=== PATIENT | female | born 1930 | race Caucasian/White ===

== ENCOUNTER 2018-01-18 19:29 | Inpatient (IN) | payer MEDICARE, OTHER ==
[2018-01-18] MEDS ORDERED: Enoxaparin Sodium 60 MG/0.6 ML SYRINGE ONE (20:25)
[2018-01-18 20:34] LABS: Troponin I 1.315 ng/mL (< 0.028)
[2018-01-18] MEDS ORDERED: Ondansetron HCl/PF 4 MG/2 ML Vial IVP PRN (22:31)
[2018-01-18] MEDS ORDERED: Ondansetron ODT 4 MG TAB SL PRN (22:31)
[2018-01-18] MEDS ORDERED: Acetaminophen 325 MG TAB PO PRN (22:31)
[2018-01-19] MEDS ORDERED: Nitroglycerin 0.4 MG TAB (25 Tab Bottle) SL PRN (00:04)
[2018-01-19] MEDS ORDERED: diphenhydrAMINE 25 MG CAP PO PRN (00:09)
--- NOTE | 2018-01-19 01:56 | HP ---
PRIMARY CARE PHYSICIAN: Roque Mata MD CHIEF COMPLAINT: Chest pain. HISTORY OF PRESENT ILLNESS: This is an 87-year-old female with a history of atrial fibrillation, gas troesophageal reflux disease, and hyperlipidemia, who presents with a chief complaint of chest pain w ith nausea that has been intermittently occurring over the last 2 days. When those are not occurring , she also has some shortness of breath, particularly with exertion and just generally feels weak wit h some heaviness in her chest. At the time of my evaluation, the patient currently denies any active shortness of breath, chest pain , heaviness, or weakness. She endorses feeling very anxious at this point in time and states that sh michele is confused about why she is here. The patient feels very "confused" particularly because her typi madelaine schedule has been interrupted. REVIEW OF SYSTEMS: As per HPI, otherwise negative. Constitutional: No recent fevers, chills, signi ficant weight loss or gain. HEENT: No new headaches, fevers, lightheadedness, or episodes of passin g out. Cardiovascular: As per above. Respiratory: As per above. Denies any recent issues with co ngestion, upper respiratory infection, postnasal drip. Gastrointestinal: As above. Decreased appet ite over the last 3-4 days. Denies any diarrhea, constipation, or abdominal pain. Genitourinary: D enies any dysuria or change in urinary frequency quality or quantity. Musculoskeletal: As per above , but otherwise no myalgias or arthralgias. PAST MEDICAL HISTORY: As noted above. PAST SURGICAL HISTORY: Status post appendectomy, status post hysterectomy. MEDICATION RECONCILIATION: Please see the EMR for full details. SOCIAL HISTORY: The patient is having difficulty recalling this off the top of her head. PHYSICAL EXAMINATION: GENERAL: The patient is awake, alert, conversant, sitting on the edge of the hospital bed, oriented to self and date, knows that she is in the hospital, but recalled the wrong hospital. HEENT: Normocephalic, atraumatic. Pupils are equal, ocular motions intact. Moist mucous membranes. CARDIOVASCULAR: S1, S2. No murmurs, rubs, or gallops. Pulses 2+ bilateral upper extremities. No p itting pedal edema. RESPIRATORY: Reasonable air movement. No wheezes, rales, or rhonchi. Clear to auscultation. No co nversational dyspnea. GASTROINTESTINAL: Positive bowel sounds. Soft, nontender to palpation. MUSCULOSKELETAL: Moving all 4 extremities independently. LABORATORY DATA AND IMAGING: All that is available, troponin of 1.315 with a follow up troponin of 1 .540. ASSESSMENT AND PLAN: An 87-year-old female presenting with chest pain. Chest pain positive for an n xp-KH-wztkohtoi myocardial infarction. I am not able to find any other lab work available for the guru price. She will need serial troponins, CBC, CMP. She has been empirically placed on Lovenox, full d ose anticoagulation and received 50 mg subcu at 9:00 p.m. the night before. We will continue with an ticoagulation, telemetry, monitoring with Cardiology consultation as well. Aspirin, atorvastatin. D epending on the patient's vital signs, we will see if she can tolerate beta blockade or SHASHA inhibitor . Maintain the patient n.p.o. status for the time being, close monitoring of her hemodynamics, and c ardiac status as noted above. Admit the patient to inpatient telemetry.
[2018-01-19 05:51] LABS: #Basophils 0.1 thou/uL (0.0-0.2); #Eosinphils 0.4 thou/uL (0.0-0.7); #Lymphocytes 2.1 thou/uL (1.20-3.40); #Monocytes 0.7 thou/uL (0.11-0.59); #Neutrophils 5.6 thou/uL (1.40-6.50); %Eosinophils 4.2 % (0.0-10.0); %Lymphocytes 24.1 % (21.0-51.0); %Monocytes 7.5 % (0.0-10.0); %Neutrophils 63.1 % (42.0-75.0); Hemoglobin 11.2 g/dL (12.0-16.0); Mean Corpuscular HGB CONC 33.3 g/dL (32.0-36.0); Mean Corpuscular Hemoglobin 31.2 pg (27.0-31.0); Mean Corpuscular Volume 93.8 fl (81.0-99.0); Mean Platelet Volume 7.6 fL (7.4-10.4); Platelet Count 222 thou/uL (130-400); RBC Distribution Width 12.9 % (11.5-14.5); Red Blood Cell (RBC) Count 3.59 mill/uL (4.20-5.40); White Blood Cell (WBC) Count 8.9 thou/uL (4.8-10.8)
[2018-01-19 06:08] LABS: Anion Gap 8 mmol/L (10-20); BUN (Urea Nitrogen) 19 mg/dL (9.8-20.1); Calc. Creatinine Clearance 37 mL/min (70-130); Calcium 8.4 mg/dL (7.8-10.44); Carbon Dioxide 26 mmol/L (23-31); Cardiac Risk 2.7 (Less than 4.5); Chloride 108 mmol/L (98-107); Cholesterol 166 mg/dl (< 200 Desired); Estimated GFR-MDRD 76; Glucose 75 mg/dL (83-110); HDL Cholesterol 62 mg/dL (>60 Neg Risk); LDL Cholesterol, Calculated 91 mg/dL; Potassium 3.6 mmol/L (3.5-5.1); Sodium 138 mmol/L (136-145); Triglycerides 65 mg/dL (Less than 150)
[2018-01-19] MEDS: Docusate 100 MG CAP PO SCH ×2 (08:02→20:58)
[2018-01-19] MEDS: Aspirin 325 MG TAB PO SCH (08:03)
[2018-01-19] MEDS ORDERED: Enoxaparin Sodium 40 MG/0.4 ML SYRINGE SC SCH (09:00)
--- NOTE | 2018-01-19 11:26 | PDOC.PN ---
- Subjective Encounter Start Date: 01/19/18 Encounter Start Time: 09:45 Subjective: no chest pain or palp or sob -: is watching tv - Objective Resuscitation Status: Resuscitation Status FULL:Full Resuscitation MAR Reviewed: Yes Vital Signs & Weight: Vital Signs (12 hours) Temp Pulse Resp BP BP Pulse Ox 01/19/18 10:46 98.0 F 77 16 184/77 H 93 L 01/19/18 07:57 98.2 F 78 16 143/68 H 98 01/19/18 04:00 98.3 F 80 18 139/63 95 01/19/18 00:00 98.7 F 85 18 118/67 95 Weight Admit Weight 96 lb 5 oz Weight 96 lb 5 oz Result Diagrams: 01/19/18 05:26 01/19/18 05:26 Phys Exam - Physical Examination HEENT: PERRLA, moist MMs Neck: no JVD, supple Respiratory: no wheezing, no rales Cardiovascular: RRR, no significant murmur Gastrointestinal: soft, non-tender, no distention, positive bowel sounds Musculoskeletal: no edema, pulses present Neurological: non-focal, moves all 4 limbs Dx/Plan (1) NSTEMI (non-ST elevated myocardial infarction) Code(s): I21.4 - NON-ST ELEVATION (NSTEMI) MYOCARDIAL INFARCTION Status: Acute (2) Afib Code(s): I48.91 - UNSPECIFIED ATRIAL FIBRILLATION Status: Acute Qualifiers: Atrial fibrillation type: paroxysmal Qualified Code(s): I48.0 - Paroxysmal atrial fibrillation (3) Dyslipidemia Code(s): E78.5 - HYPERLIPIDEMIA, UNSPECIFIED Status: Chronic (4) GERD (gastroesophageal reflux disease) Code(s): K21.9 - GASTRO-ESOPHAGEAL REFLUX DISEASE WITHOUT ESOPHAGITIS Status: Chronic Qualifiers: Esophagitis presence: without esophagitis Qualified Code(s): K21.9 - Gastro -esophageal reflux disease without esophagitis (5) Dementia Code(s): F03.90 - UNSPECIFIED DEMENTIA WITHOUT BEHAVIORAL DISTURBANCE Status: Suspected Qualifiers: Dementia type: unspecified type Dementia behavioral disturbance: without behavioral disturbance Qualified Code(s): F03.90 - Unspecified dementia without behavioral disturbance - Plan is on lovenox 40mg sc q12h, asp and lipitor -: is npo for possible intervention -: not sure if she is fully oriented -: has denied prior cardiac w/u and colonoscopies -: hemostable now * . Review of Systems - Medications/Allergies Allergies/Adverse Reactions: Allergies Allergy/AdvReac Type Severity Reaction Status Date / Time penicillin G Allergy Verified 01/18/18 22:37 Medications: Current Medications Aspirin (Aspirin) 325 mg PO DAILY [facility] Last Admin: 01/19/18 08:03 Dose: 325 mg Atorvastatin Calcium (Lipitor) 20 mg PO QPM [facility] Bisacodyl (Dulcolax) 10 mg PO DAILYPRN PRN PRN Reason: Constipation Diphenhydramine HCl (Benadryl) 12.5 mg PO HSPRN PRN PRN Reason: Insomnia Docusate Sodium (Colace) 100 mg PO BID [facility] Last Admin: 01/19/18 08:02 Dose: 100 mg Enoxaparin Sodium (Lovenox) 40 mg SC 0900,2100 [facility] Last Admin: 01/19/18 08:03 Dose: 40 mg Nitroglycerin (Nitrostat) 0.4 mg SL Q5MIN PRN PRN Reason: Chest Pain
[2018-01-19] MEDS ORDERED: Losartan 25 MG TAB PO SCH (11:45)
[2018-01-19] MEDS ORDERED: Communication Order-Pharmacy FS SCH (11:45)
--- NOTE | 2018-01-19 12:34 | CON ---
DATE OF CONSULTATION: 01/19/2018 REASON FOR CONSULTATION: Chest pressure, wide complex tachycardia. HISTORY OF PRESENT ILLNESS: Ms. Tiki Zelaya is a delightful 87-year-old woman from [place]. She was sent here after she presented with chest pressure at rest and a wide complex tachycardia. The p atient is feeling better now, but when she arrived in the emergency room, she felt that pressure as m entioned. The patient received aspirin and Lovenox in the emergency room. The patient states that she has had some heart difficulties in the past, but she is not sure what. S he said she has not seen a stator plate washer as she knows but she said, "my memory is not as good as it us ed to be." She has history of esophageal reflux, ?atrial fibrillation. She feels well now. She has eaten breakfast and feeling well. REVIEW OF SYSTEMS: Constitutional: No significant weight gain or loss. Vision: No changes. Heari ng: No changes. Pulmonary: No cough or wheezing. Gastrointestinal: No nausea, vomiting, or diarr hea. Skin: No rashes. Neurologic: No unilateral weakness or numbness. Psychiatric: She says her memory is poor, but no unusual depression or anxiety. SOCIAL HISTORY: She has a sister who lives in [place]. She has children who live out of [facility]. PAST SURGICAL HISTORY: 1. Previous appendectomy. 2. Previous hysterectomy. HOME MEDICATIONS: The patient reports that she is not certain about her medications. PHYSICAL EXAMINATION: GENERAL: This is a pleasant elderly woman, in no distress. VITAL SIGNS: Blood pressure 184/77, pulse 77 and regular. EYES: Sclerae nonicteric. MOUTH: Mucous membranes moist. NECK: Supple. LUNGS: Clear anteriorly and laterally. CARDIAC: There is a 3/6 holosystolic murmur at the apex of mitral regurgitation. A 2-3/6 midsystoli c murmur at left midsternal border. No diastolic murmur, no S3. ABDOMEN: Soft, nontender, no hepatosplenomegaly. EXTREMITIES: Warm and dry. No clubbing, cyanosis or edema. Good femoral pulse on the right. Good dorsalis pedis and posterior tibial pulses bilaterally. SKIN: Warm and dry. PERTINENT LABORATORY AND X-RAY FINDINGS: Hemoglobin 11.2, hematocrit 33.7. Troponin level 1.5. LDL cholesterol is 91. Echocardiogram revealed a normal ejection fraction, but she has moderate to severe mitral regurgitati on, moderate tricuspid insufficiency, mildly elevated pulmonary artery pressure. EKG initially revealed a wide complex tachycardia that probably was ventricular tachycardia. The QRS duration is 0.12. There is a left axis deviation with a right bundle branch block pattern. Follow up EKGs are sinus rhythm with the mild left atrial enlargement on the EKG. ASSESSMENT: 1. Non-ST elevation myocardial infarction. 2. Wide complex tachycardia, probably ventricular tachycardia, potentially could be supraventricular tachycardia with aberrancy, but statistically at this age more likely will be ventricular in origin. 3. Moderate to severe mitral regurgitation with calcified mitral valve. 4. Hypertension. PLAN: 1. Continue enoxaparin, we will reduce dose. 2. Add SHASHA inhibitor or angiotensin receptor jimi. 3. Aspirin. 4. Recommend cardiac catheterization for the definitive test to see the extent of coronary artery di sease. Discussed risks of stroke, heart attack, iodine allergy, loss of blood supply to the leg or k idney, stent thrombosis, stent restenosis. She understands and wished to proceed.
[2018-01-19] MEDS: Atorvastatin Calcium 20 MG TAB PO SCH (20:57)
[2018-01-19] MEDS: Bisacodyl 5 MG TAB PO PRN (20:57)
[2018-01-19] MEDS: Enoxaparin Sodium 30 MG/0.3 ML SYRINGE SC SCH (20:58)
[2018-01-20 05:59] LABS: #Basophils 0.1 thou/uL (0.0-0.2); #Eosinphils 0.5 thou/uL (0.0-0.7); #Lymphocytes 1.7 thou/uL (1.20-3.40); #Monocytes 0.6 thou/uL (0.11-0.59); #Neutrophils 3.9 thou/uL (1.40-6.50); %Basophils 1.4 % (0.0-1.0); %Lymphocytes 25.2 % (21.0-51.0); %Monocytes 9.1 % (0.0-10.0); %Neutrophils 57.3 % (42.0-75.0); Hemoglobin 11.3 g/dL (12.0-16.0); Mean Corpuscular HGB CONC 33.3 g/dL (32.0-36.0); Mean Corpuscular Hemoglobin 31.3 pg (27.0-31.0); Mean Corpuscular Volume 94.1 fl (81.0-99.0); Mean Platelet Volume 7.7 fL (7.4-10.4); Platelet Count 233 thou/uL (130-400); RBC Distribution Width 12.6 % (11.5-14.5); White Blood Cell (WBC) Count 6.8 thou/uL (4.8-10.8)
[2018-01-20 06:06] LABS: Anion Gap 8 mmol/L (10-20); BUN (Urea Nitrogen) 14 mg/dL (9.8-20.1); Calc. Creatinine Clearance 39 mL/min (70-130); Calcium 8.4 mg/dL (7.8-10.44); Carbon Dioxide 29 mmol/L (23-31); Chloride 108 mmol/L (98-107); Estimated GFR-MDRD 82; Glucose 85 mg/dL (83-110); Potassium 3.3 mmol/L (3.5-5.1); Sodium 142 mmol/L (136-145)
[2018-01-20] MEDS: Enoxaparin Sodium 30 MG/0.3 ML SYRINGE SC SCH (08:15)
[2018-01-20] MEDS: Docusate 100 MG CAP PO SCH ×2 (08:15→20:20)
[2018-01-20] MEDS: Aspirin 325 MG TAB PO SCH (08:15)
[2018-01-20] MEDS: Losartan 25 MG TAB PO SCH (08:15)
[2018-01-20] MEDS ORDERED: Acetaminophen 325 MG TAB PO PRN (09:08)
--- NOTE | 2018-01-20 12:28 | PDOC.CTH ---
Cardiology Progress Note - Subjective Awake, alert, technical project manager at bedside for scan. Patient denies chest pain, shortness of breath, nausea/vomiting. Denies palpitations or accelerated heart rate. Discussed cardiac catheterization, questions asked and answered. No overnight events, no cardiac events. - Objective Vital Signs Temp Pulse Resp BP BP Pulse Ox 01/20/18 10:44 98.1 F 76 15 135/69 95 01/20/18 08:12 98.0 F 76 15 161/72 H 96 01/20/18 05:41 98 01/20/18 04:00 98.2 F 71 18 117/57 L Admit Weight 96 lb 5 oz Weight 95 lb 11.2 oz 01/19/18 01/20/18 01/21/18 06:59 06:59 06:59 Intake Total 480 Balance 480 - Physical Examination General/Neuro: alert & oriented x3, NAD Neck: no JVD present Lungs: CTA, unlabored respirations Heart: RRR, other: (3/6 systolic murmur heard best @ the apex, 2/6 systolic murmur heard best @ L MS border) Abdomen: NT/ND - Telemetry Telemetry Rhythm: SR/SA - Labs Result Diagrams: 01/20/18 05:19 01/20/18 05:19 Troponin/CKMB Troponin I 1.540 ng/mL (< 0.028) H* 01/18/18 22:06 - Assessment/Plan 1.S/P NSTEMI-likely demand ischemia 2/2 prolonged tachycardia, no known CAD. Chest pain free currently, max trop 1.540. Cont ASA, statin, ARB. Plan for [facility] tomorrow morning. 2.Wide Complex Tachycardia-likely Vtach. No recurrence. 3.Mitral Regurg-mod to severe c/ calcified valve on most recent echo 4.Hypokalemia-K+ 3.3, recheck lab in am, on ARB
--- NOTE | 2018-01-20 13:42 | PDOC.PN ---
- Subjective Encounter Start Date: 01/20/18 Encounter Start Time: 11:00 Subjective: no sob or chest pain -: is eating her breakfast now -: no palpitations, is worried about too much happening from last 2 days - Objective Resuscitation Status: Resuscitation Status FULL:Full Resuscitation Vital Signs & Weight: Vital Signs (12 hours) Temp Pulse Pulse Pulse Resp BP BP 01/20/18 12:50 76 76 173/82 H 127/70 01/20/18 10:44 98.1 F 76 15 01/20/18 08:12 98.0 F 76 15 01/20/18 05:41 01/20/18 04:00 98.2 F 71 18 BP BP Pulse Ox Pulse Ox Pulse Ox 01/20/18 12:50 98 97 01/20/18 10:44 135/69 95 01/20/18 08:12 161/72 H 96 01/20/18 05:41 98 01/20/18 04:00 117/57 L Weight Admit Weight 96 lb 5 oz Weight 95 lb 11.2 oz I&O: 01/19/18 01/20/18 01/21/18 06:59 06:59 06:59 Intake Total 480 Balance 480 Result Diagrams: 01/20/18 05:19 01/20/18 05:19 Phys Exam - Physical Examination HEENT: PERRLA, moist MMs, sclera anicteric Neck: no JVD, supple Respiratory: no wheezing, no rales Cardiovascular: RRR, no significant murmur Gastrointestinal: soft, non-tender, positive bowel sounds Musculoskeletal: no edema, pulses present Neurological: non-focal, moves all 4 limbs Dx/Plan (1) NSTEMI (non-ST elevated myocardial infarction) Code(s): I21.4 - NON-ST ELEVATION (NSTEMI) MYOCARDIAL INFARCTION Status: Acute (2) Afib Code(s): I48.91 - UNSPECIFIED ATRIAL FIBRILLATION Status: Chronic Qualifiers: Atrial fibrillation type: paroxysmal Qualified Code(s): I48.0 - Paroxysmal atrial fibrillation (3) Dyslipidemia Code(s): E78.5 - HYPERLIPIDEMIA, UNSPECIFIED Status: Chronic (4) GERD (gastroesophageal reflux disease) Code(s): K21.9 - GASTRO-ESOPHAGEAL REFLUX DISEASE WITHOUT ESOPHAGITIS Status: Chronic Qualifiers: Esophagitis presence: without esophagitis Qualified Code(s): K21.9 - Gastro -esophageal reflux disease without esophagitis (5) Dementia Code(s): F03.90 - UNSPECIFIED DEMENTIA WITHOUT BEHAVIORAL DISTURBANCE Status: Suspected Qualifiers: Dementia type: unspecified type Dementia behavioral disturbance: without behavioral disturbance Qualified Code(s): F03.90 - Unspecified dementia without behavioral disturbance - Plan is on lovenox 30mg q12h, asp, lipitor, cozaar. -: echo shows ivc dil, pasp 41mmhg, will get usg venous doppler -: cath in am, watch for overload with iv fluids-may dc if tolerating oraldiet -: to amb as tolerated * . Review of Systems - Medications/Allergies Allergies/Adverse Reactions: Allergies Allergy/AdvReac Type Severity Reaction Status Date / Time penicillin G Allergy Verified 01/18/18 22:37 Medications: Current Medications Acetaminophen (Tylenol) 650 mg PO Q6H PRN PRN Reason: Headache/Fever or Pain Last Admin: 01/20/18 09:13 Dose: 650 mg Aspirin (Aspirin) 325 mg PO DAILY [facility] Last Admin: 01/20/18 08:15 Dose: 325 mg Atorvastatin Calcium (Lipitor) 20 mg PO QPM [facility] Last Admin: 01/19/18 20:57 Dose: 20 mg Bisacodyl (Dulcolax) 10 mg PO DAILYPRN PRN PRN Reason: Constipation Last Admin: 01/19/18 20:57 Dose: 10 mg Diphenhydramine HCl (Benadryl) 12.5 mg PO HSPRN PRN PRN Reason: Insomnia Docusate Sodium (Colace) 100 mg PO BID [facility] Last Admin: 01/20/18 08:15 Dose: 100 mg Enoxaparin Sodium (Lovenox) 30 mg SC 0900,2100 [facility] Stop: 01/20/18 21:01 Last Admin: 01/20/18 08:15 Dose: 30 mg Sodium Chloride (Normal Saline 0.9%) 1,000 mls @ 80 mls/hr IV .[id number] [facility] Losartan Potassium (Cozaar) 50 mg PO DAILY [facility] Last Admin: 01/20/18 08:15 Dose: 50 mg Miscellaneous Information (Communication Order-Pharmacy) 0 each FS ONE [facility] Stop: 01/21/18 11:46 Nitroglycerin (Nitrostat) 0.4 mg SL Q5MIN PRN PRN Reason: Chest Pain
--- NOTE | 2018-01-20 15:36 | PRG ---
DATE OF SERVICE: 01/20/2018 Ms. Zelaya is doing well, no complaints today. Please see the note dictated by Rema Gilbert in the computer. Blood pressure 135/69. ASSESSMENT: 1. Non-ST elevation myocardial infarction. 2. Wide complex tachycardia, looks like ventricular tachycardia. 3. Mitral regurgitation. PLAN: Initial plan was to consider cardiac catheterization; however, the patient does have significa nt dementia and is frail. I had a long discussion with the son and he has concerns about his mother withstanding procedures. He has not declined, but states that he does have some concerns. After a l sunday discussion, we decided to do the followin. Do stress test tomorrow. 2. If the stress test is normal, treat her medically. 3. If the stress test is abnormal, he would like to discuss further about maybe doing a cardiac cath eterization. Dr. Enriquez will return tomorrow to discuss if there are abnormalities on the stress test. The son's phone number [phone].
--- NOTE | 2018-01-20 15:58 | ULT ---
BILATERAL LOWER EXTREMITY VENOUS ULTRASOUND WITH DOPPLER: Date: 01/20/18 HISTORY: not provided TECHNIQUE: Roberson scale, color flow, Doppler imaging, and spectral waveform analysis performed of the left and rig ht lower extremity deep venous system. FINDINGS: Bilaterally, there is compressibility, presence of flow, and augmentation in the common femoral, femo ral vein, and popliteal vein. There is flow in bilateral greater saphenous veins, profunda veins, and posterior tibial veins. IMPRESSION: No evidence of thrombus in the left or right lower extremity deep venous system. POS: GISELLE
[2018-01-20] MEDS: Atorvastatin Calcium 20 MG TAB PO SCH (20:20)
[2018-01-20] MEDS: Bisacodyl 5 MG TAB PO PRN (20:20)
[2018-01-21 05:33] LABS: #Basophils 0.1 thou/uL (0.0-0.2); #Eosinphils 0.6 thou/uL (0.0-0.7); #Lymphocytes 2.1 thou/uL (1.20-3.40); #Monocytes 0.6 thou/uL (0.11-0.59); #Neutrophils 4.1 thou/uL (1.40-6.50); %Basophils 1.5 % (0.0-1.0); %Eosinophils 7.4 % (0.0-10.0); %Lymphocytes 28.3 % (21.0-51.0); %Monocytes 8.2 % (0.0-10.0); %Neutrophils 54.5 % (42.0-75.0); Hemoglobin 12.8 g/dL (12.0-16.0); Mean Corpuscular HGB CONC 33.2 g/dL (32.0-36.0); Mean Corpuscular Hemoglobin 30.8 pg (27.0-31.0); Mean Corpuscular Volume 92.9 fl (81.0-99.0); Mean Platelet Volume 7.4 fL (7.4-10.4); Platelet Count 271 thou/uL (130-400); RBC Distribution Width 12.7 % (11.5-14.5); Red Blood Cell (RBC) Count 4.15 mill/uL (4.20-5.40); White Blood Cell (WBC) Count 7.5 thou/uL (4.8-10.8)
[2018-01-21 05:45] LABS: Anion Gap 12 mmol/L (10-20); BUN (Urea Nitrogen) 14 mg/dL (9.8-20.1); Calc. Creatinine Clearance 33 mL/min (70-130); Calcium 9.2 mg/dL (7.8-10.44); Carbon Dioxide 25 mmol/L (23-31); Chloride 106 mmol/L (98-107); Estimated GFR-MDRD 67; Glucose 85 mg/dL (83-110); Potassium 3.3 mmol/L (3.5-5.1); Sodium 140 mmol/L (136-145)
[2018-01-21] MEDS: Sodium Chloride 0.9% 1,000 ML IV SCH ×2 (05:57→20:53)
--- NOTE | 2018-01-21 07:36 | PDOC.CTH ---
Cardiology Progress Note - Subjective No complaints today. She would like to go home. - Objective Vital Signs Temp Pulse Resp BP BP Pulse Ox 01/21/18 04:00 98.4 F 86 18 157/66 H 98 01/20/18 20:20 97.6 F 99 18 96 01/20/18 19:50 97.6 F 99 18 141/87 H 96 Admit Weight 96 lb 5 oz Weight 94 lb 14.4 oz 01/20/18 01/21/18 01/22/18 06:59 06:59 06:59 Intake Total 480 240 Balance 480 240 - Physical Examination General/Neuro: NAD Neck: carotid US brisk, no JVD present Lungs: CTA, unlabored respirations Heart: PMI normal, RRR Abdomen: no HSM, NT/ND Extremities: + femoral B - Labs Result Diagrams: 01/21/18 05:05 01/21/18 05:05 Troponin/CKMB Troponin I 1.540 ng/mL (< 0.028) H* 01/18/18 22:06 - Assessment/Plan 1. WCT 2. Increase troponin 3. Dementia 4. Increase frailty Plan on ST today givne co-morbidities If stress test low risk, recommend medical therapy. If felt to be high risk, discuss options with pt and family. Addendum: Pt with recent stress test WNL and normal EF. Spoke with Amado, pts son. He is relieved on the findings of the stress test and pleased on pursuing medical therapy. He understands the risk of SCD given WCT but is felt to be at low risk given no ischemia and normal EF. Continue with BB.
[2018-01-21] MEDS ORDERED: ADENOSINE 60 MG/20 ML VIAL ONE (11:07)
[2018-01-21] MEDS: Losartan 25 MG TAB PO SCH (11:40)
[2018-01-21] MEDS: Docusate 100 MG CAP PO SCH ×2 (11:40→20:53)
--- NOTE | 2018-01-21 13:07 | NM ---
RADIONUCLIDE STRESS REST MYOCARDIAL PERFUSION SCAN WITH CT ATTENUATION CORRECTION AND SPECT IMAGING LEFT VENTRICULAR WALL MOTION EVALUATION AND EJECTION FRACTION: History Chest pain. FINDINGS: Adenosine protocol was used. There is homogeneous uptake of radiotracer throughout the left ventricu lar myocardium on the stress and rest images. No focal perfusion defect or reversibility. QGS chas sis of gated SPECT images shows no focal wall motion abnormalities. Left ventricular ejection fracti on calculated at 81%. IMPRESSION: Normal myocardial perfusion scan. Normal left ventricular ejection fraction. POS: TPC
[2018-01-21 13:35] VITALS: BMI 18.5
--- NOTE | 2018-01-21 13:48 | PQF ---
JAYDEN DURANT, VIRAJ TEMPLE MD [id number] [id number] CLINICAL DOCUMENTATION IMPROVEMENT CLARIFICATION FORM: ICD-10 Updated PLEASE DO AN ADDENDUM TO THE PROGRESS NOTE WITH ANY DOCUMENTATION UPDATES OR ADDITIONS AND CARRY THROUGH TO DC SUMMARY. THANK YOU. DATE: 01-21-18 ATTN: DR. BERMUDEZ Please exercise your independent, professional judgment in responding to the clarification form. Clinical indicators are provided on the bottom of this form for your review Please check appropriate box(s): AMI TYPE: [ ] NSTEMI [ ] AMI Type II [ ] Other diagnosis [ ] Unable to determine CLINICAL INDICATORS - SIGNS / SYMPTOMS / LABS LABS: TROPONIN I 01-18 @ 1953 1.315 5 @ 2205 1.540 H&P: NSTEMI CARDIO CONSULT: NSTEMI ; WIDE COMPLEX TACHYCARDIA 01-20 CARDIO PN: NSTEMI - LIKELY DEMAND ISCHEMIA 2/ PROLONGED TACHYCARDIA, NO KNOWN CAD. CHEST PAIN FREE 01-20 LARA PN: NSTEMI RISKS: H&P: CP / NAUSEA INTERMITTENTLY OVER LAST 2 DAYS 01-19 CARDIO CONSULT: WIDE COMPLEX TACHYCARDIA; HTN; 01-20 CARDIO PN: NSTEMI - LIKELY DEMAND ISCHEMIA 2/ PROLONGED TACHYCARDIA TREATMENTS: TELEMETRY MONITORING CARDIO CONSULT - PLAN FOR CARDIAC CATH MAR: ASPIRIN COZAAR LOVENOX THANK YOU, KIRA (This form is maintained as a part of the permanent medical record) 2014 [employer]. All Rights Reserved Kira Nicholson RN, BS [email or web address] [facility]
--- NOTE | 2018-01-21 15:57 | PDOC.PN ---
- Subjective Encounter Start Date: 01/21/18 Encounter Start Time: 11:00 Subjective: is down in stress test lab -: no chest pain or sob -: has sitter in room as she tried to walk out and was confused overnight - Objective Resuscitation Status: Resuscitation Status FULL:Full Resuscitation MAR Reviewed: Yes Vital Signs & Weight: Vital Signs (12 hours) Temp Pulse Resp BP BP Pulse Ox 01/21/18 15:21 98.1 F 93 16 140/73 95 01/21/18 11:37 98.0 F 89 15 138/65 95 01/21/18 08:35 98.4 F 82 14 147/72 H 96 01/21/18 04:00 98.4 F 86 18 157/66 H 98 Weight Admit Weight 96 lb 5 oz Weight 94 lb 14.4 oz I&O: 01/20/18 01/21/18 01/22/18 06:59 06:59 06:59 Intake Total 480 240 Balance 480 240 Result Diagrams: 01/21/18 05:05 01/21/18 05:05 Phys Exam - Physical Examination HEENT: PERRLA, moist MMs Neck: no JVD, supple Respiratory: no wheezing, no rales Cardiovascular: RRR, no significant murmur Gastrointestinal: soft, non-tender, positive bowel sounds Musculoskeletal: no edema, pulses present Neurological: non-focal, moves all 4 limbs Dx/Plan (1) NSTEMI (non-ST elevated myocardial infarction) Code(s): I21.4 - NON-ST ELEVATION (NSTEMI) MYOCARDIAL INFARCTION Status: Acute (2) Afib Code(s): I48.91 - UNSPECIFIED ATRIAL FIBRILLATION Status: Chronic Qualifiers: Atrial fibrillation type: paroxysmal Qualified Code(s): I48.0 - Paroxysmal atrial fibrillation (3) Dyslipidemia Code(s): E78.5 - HYPERLIPIDEMIA, UNSPECIFIED Status: Chronic (4) GERD (gastroesophageal reflux disease) Code(s): K21.9 - GASTRO-ESOPHAGEAL REFLUX DISEASE WITHOUT ESOPHAGITIS Status: Chronic Qualifiers: Esophagitis presence: without esophagitis Qualified Code(s): K21.9 - Gastro -esophageal reflux disease without esophagitis (5) Dementia Code(s): F03.90 - UNSPECIFIED DEMENTIA WITHOUT BEHAVIORAL DISTURBANCE Status: Chronic Qualifiers: Dementia type: unspecified type Dementia behavioral disturbance: with behavioral disturbance Qualified Code(s): F03.91 - Unspecified dementia with behavioral disturbance - Plan on asp, lipitor, cozaar -: gentle iv hydration, may dc if eating well -: encourage po intake, echo showed mod to severe MR, ef was 50% -: dc plan in am if stable and cognitively clear -: stress test is -ve for reversible ischemia * . Review of Systems - Medications/Allergies Allergies/Adverse Reactions: Allergies Allergy/AdvReac Type Severity Reaction Status Date / Time penicillin G Allergy Verified 01/18/18 22:37 Medications: Current Medications Acetaminophen (Tylenol) 650 mg PO Q6H PRN PRN Reason: Headache/Fever or Pain Last Admin: 01/20/18 09:13 Dose: 650 mg Aspirin (Aspirin Chewable) 81 mg PO DAILY [facility] Last Admin: 01/21/18 11:40 Dose: 81 mg Atorvastatin Calcium (Lipitor) 20 mg PO QPM [facility] Last Admin: 01/20/18 20:20 Dose: 20 mg Bisacodyl (Dulcolax) 10 mg PO DAILYPRN PRN PRN Reason: Constipation Last Admin: 01/20/18 20:20 Dose: 10 mg Diphenhydramine HCl (Benadryl) 12.5 mg PO HSPRN PRN PRN Reason: Insomnia Docusate Sodium (Colace) 100 mg PO BID [facility] Last Admin: 01/21/18 11:40 Dose: 100 mg Sodium Chloride (Normal Saline 0.9%) 1,000 mls @ 80 mls/hr IV .[id number] [facility] Last Admin: 01/21/18 05:57 Dose: Not Given Losartan Potassium (Cozaar) 50 mg PO DAILY [facility] Last Admin: 01/21/18 11:40 Dose: 50 mg Nitroglycerin (Nitrostat) 0.4 mg SL Q5MIN PRN PRN Reason: Chest Pain
[2018-01-21] MEDS: Atorvastatin Calcium 20 MG TAB PO SCH (20:51)
[2018-01-22 05:57] LABS: #Basophils 0.1 thou/uL (0.0-0.2); #Eosinphils 0.5 thou/uL (0.0-0.7); #Lymphocytes 1.7 thou/uL (1.20-3.40); #Monocytes 0.6 thou/uL (0.11-0.59); #Neutrophils 4.1 thou/uL (1.40-6.50); %Basophils 1.7 % (0.0-1.0); %Eosinophils 7.7 % (0.0-10.0); %Monocytes 8.8 % (0.0-10.0); %Neutrophils 57.9 % (42.0-75.0); Hemoglobin 12.6 g/dL (12.0-16.0); Mean Corpuscular HGB CONC 33.2 g/dL (32.0-36.0); Mean Corpuscular Volume 93.3 fl (81.0-99.0); Mean Platelet Volume 7.8 fL (7.4-10.4); Platelet Count 250 thou/uL (130-400); RBC Distribution Width 12.8 % (11.5-14.5); Red Blood Cell (RBC) Count 4.07 mill/uL (4.20-5.40)
[2018-01-22 06:22] LABS: Anion Gap 11 mmol/L (10-20); BUN (Urea Nitrogen) 15 mg/dL (9.8-20.1); Calc. Creatinine Clearance 35 mL/min (70-130); Calcium 8.9 mg/dL (7.8-10.44); Carbon Dioxide 27 mmol/L (23-31); Chloride 106 mmol/L (98-107); Estimated GFR-MDRD 72; Glucose 87 mg/dL (83-110); Potassium 3.7 mmol/L (3.5-5.1); Sodium 140 mmol/L (136-145)
--- NOTE | 2018-01-22 07:07 | PDOC.CTH ---
Cardiology Progress Note - Subjective Doing well. She would like to go home. - Objective Vital Signs Temp Pulse Resp BP BP BP Pulse Ox 01/22/18 04:00 98.0 F 70 17 148/70 H 96 01/22/18 00:10 98.0 F 79 14 139/71 97 01/21/18 20:53 98.3 F 102 H 16 145/67 H 98 Admit Weight 96 lb 5 oz Weight 94 lb 14.4 oz 01/21/18 01/22/18 01/23/18 06:59 06:59 06:59 Intake Total 240 Balance 240 - Physical Examination General/Neuro: NAD Neck: carotid US brisk, no JVD present Lungs: CTA, unlabored respirations Heart: PMI normal, RRR Abdomen: no HSM, NT/ND, soft - Labs Result Diagrams: 01/22/18 04:51 01/22/18 04:51 Troponin/CKMB Troponin I 1.540 ng/mL (< 0.028) H* 01/18/18 22:06 - Assessment/Plan 1. WCT 2. Increase troponin 3. Dementia 4. Increase frailty Add toprol Conservative treatment No further dysrythmias overnight Family agrees on conservative treatment and understand consequences on proceeding with a more aggressive or conservative approach Ok for d/c today EKG may be more consistent with SVT with aberrancy but cannot exclude VT. Family opts for conservative treatment
[2018-01-22] MEDS: Sodium Chloride 0.9% 1,000 ML IV SCH (07:29)
[2018-01-22] MEDS ORDERED: Metoprolol Tartrate 25 MG TAB PO SCH (09:00)
[2018-01-22] MEDS: Docusate 100 MG CAP PO SCH (09:34)
[2018-01-22] MEDS: Losartan 25 MG TAB PO SCH (09:34)
[2018-01-22] MEDS: Bisacodyl 5 MG TAB PO PRN (09:34)
[2018-01-22 16:07] VITALS: BP 140/91; TEMP 97.5
--- NOTE | 2018-01-23 10:11 | DIS ---
DATE OF ADMISSION: 01/19/2018 DATE OF DISCHARGE: 01/22/2018 ADMITTING DIAGNOSIS: Acute chest pain. DISCHARGE DIAGNOSIS: NSTEMI with acute chest pain. SECONDARY DIAGNOSES: 1. Hyperlipidemia. 2. Hypertension. 3. Wide complex tachycardia. 4. Moderate to severe mitral regurgitation with a calcified mitral valve. CONSULTANTS INVOLVED IN THIS CARE: Angel Melton M.D. INVESTIGATIONS DONE DURING THIS ADMISSION: A nuclear stress test which was unremarkable. HISTORY OF PRESENT ILLNESS AND HOSPITAL COURSE: In brief, this is an 87-year-old white female who is a resident of [place]. She was sent to the [place] ER, as she was having some sudden onset of chest pain at rest and associated with some wide complex tachycardia which was noted in the EKG at [facility]. The patient arrived in the ER with some chest pressure and she was started on aspirin, L ovenox and beta blockers. Chest pain was resolved and she was feeling better, but she remained very confused and disoriented, which according to the family is her baseline. She lives independently. S he had a Cardiology evaluation who recommended medical management and advised for a nuclear stress te st. Patient showed good improvement with no further chest pains were noted and the patient was ramandeep nued on home medications and she was prescribed metoprolol and losartan along with a statin to [facility] for further medical management. Patient was discharged in stable condition after Cardiology have reviewed her. Patient was stable on the day of discharge. PHYSICAL EXAMINATION: VITAL SIGNS: On day of discharge, blood pressure is 140/91, heart rate is 59, respiratory rate 16, s aturation 99%. GENERAL: The patient is moderately built, moderately nourished. CARDIOVASCULAR: S1, S2 normal. No murmurs, rubs or gallops. LUNGS: Bilateral air entry was equal. No wheezing, no crackles. ABDOMEN: Soft, nontender. No guarding, no rebound or tenderness. Bowel sounds normal. MUSCULOSKELETAL: No calf tenderness or pedal edema. No joint tenderness, no joint swelling. DISCHARGE MEDICATIONS: New medications are, 1. Atorvastatin. 2. Losartan. 3. Metoprolol. Other home medications continued are aspirin 81 mg daily, bupropion 100 mg daily, Plavix 75 mg p.o. e very 2 days, digoxin 125 mcg p.o. daily, gabapentin 400 mg p.o. daily, lactulose, and memantine 5 mg p.o. b.i.d. DISCHARGE INSTRUCTIONS: Continue activity as tolerated. Advised to follow up with primary care phys ician in 1-2 weeks. Advised to follow up with Cardiology in 2-3 weeks. Continue with a cardiac diet. I spent 35 minutes with this patient on day of discharge.
== END 2018-01-22 19:45 | disposition home or self-care (01) | DRG 281 ==
LOC: ERS 19:29 → 2NO 20:19
PROVIDERS: ADMIT Internal Medicine; ATTEND Internal Medicine
DX: I21.4 Non-ST elevation (NSTEMI) myocardial infarction (principal); I47.2 Ventricular tachycardia; E87.6 Hypokalemia; K21.9 Gastro-esophageal reflux disease without esophagitis; I48.0 Paroxysmal atrial fibrillation; E78.5 Hyperlipidemia, unspecified; Z79.899 Other long term (current) drug therapy; Z79.82 Long term (current) use of aspirin; Z79.02 Long term (current) use of antithrombotics/antiplatelets; I34.0 Nonrheumatic mitral (valve) insufficiency; I10 Essential (primary) hypertension; F03.90 Unspecified dementia, unspecified severity, without behavioral disturbance, psychotic disturbance, mood disturbance, and anxiety
CPT/HCPCS: 36415; 78452; 80048; 80061; 84484; 85025; 93005; 93017; 93306; 93798; 93970; 96372; A4216; A9500; G8978-GP-CK; G8979-GP-CK; G8980-GP-CK; J0153; J1650